=== PATIENT | male | born 1980 | race Caucasian/White ===

== ENCOUNTER 2016-10-16 00:04 | Emergency (ER) | payer SELFPAY ==
[~2016-10-16] VITALS: Ht 175.3 cm; Wt 75.6 kg
[~2016-10-16 00:04] MED LIST: BACT800T5 PO; MOTR200T PO; NAPR500 PO
[2016-10-16 00:09] VITALS: BP 144/86; PULSE 79; RESP 18; TEMP 98.4; O2SAT 97
[2016-10-16 00:30] VITALS: O2SAT 97
[2016-10-16] MEDS ORDERED: SODIUM CHLORIDE 0.9% FLUSH 10 ML FLUSH IVF PRN (00:30)
[2016-10-16] MEDS ORDERED: SODIUM CHLOR 0.9% 1000 ML INJ 1,000 ML IV SCH (00:30)
[2016-10-16] MEDS ORDERED: IBUP200C PO (00:57)
[2016-10-16 01:05] VITALS: BP 138/76; PULSE 58; RESP 18; O2SAT 97
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
[2016-10-16 03:11] LABS: BLOOD, URINE NEG (NEG); GLUCOSE,URINE NEG (NEG); KETONE, URINE NEG (NEG); NITRITE,URINE NEG (NEG)
[2016-10-16 03:15] LABS: RBC, URINE 0-2 /hpf (0-3); URINE COLOR YELLOW (YELLW/STRAW); WBC, URINE 0-2 /hpf (0-5)
[2016-10-16 03:16] LABS: COMMENT (UR) CULT NOT INDICATED; CULTURE IF INDICATED CULT NOT INDICATED; SQUAMOUS EPITHELIAL CELL URINE 0-5 /hpf (0-5)
[2016-10-16] MEDS ORDERED: IBUPROFEN 800 MG TAB PO ONE (03:30)
[2016-10-16] MEDS ORDERED: ROBA750T PO (03:34)
[2016-10-16] MEDS ORDERED: IBUP800T23 PO (03:34)
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
[2016-10-16 03:54] VITALS: BP 133/77; PULSE 70; RESP 18; O2SAT 97
--- NOTE | 2016-10-16 14:27 | EKG ---
Date Performed: 10/16/2016 Time Performed: 01:12:42 PTAGE: 36 years EKG: Sinus bradycardia. Normal ECG except for rate NO PREVIOUS TRACING DOCTOR: Cookie Ramos Interpretating Date/Time 10/16/2016 14:24:24
== END 2016-10-16 03:58 | disposition home or self-care (01) ==
LOC: PHED 00:04
DX: S16.1XXA Strain of muscle, fascia and tendon at neck level, initial encounter (principal); S09.90XA Unspecified injury of head, initial encounter; S70.02XA Contusion of left hip, initial encounter; R00.1 Bradycardia, unspecified; M50.30 Other cervical disc degeneration, unspecified cervical region; F17.200 Nicotine dependence, unspecified, uncomplicated; V28.4XXA Motorcycle driver injured in noncollision transport accident in traffic accident, initial encounter
CPT/HCPCS: 70450; 71010; 72125; 72170; 81001; 93005

== ENCOUNTER 2017-08-11 22:23 | Emergency (ER) | payer SELFPAY ==
[~2017-08-11 22:23] MED LIST changes: -BACT800T5 PO; +IBUP1TAB7 PO; +IBUP200C PO; -MOTR200T PO; -NAPR500 PO; +ROBA750T PO
[2017-08-11 23:14] VITALS: BP 131/93; PULSE 58; RESP 16; TEMP 98.7; O2SAT 98
--- NOTE | 2017-08-12 00:35 | PD ---
HPI Chief Complaint: Complaint Time Seen by Provider: 00:24 Travel History International Travel<30 days: No Contact w/Intl Traveler<30days: No Traveled to known affect area: No History of Present Illness HPI The patient is a 37-year-old male that complains of a bulge in his left groin for one month. He states he can lay back and pressed on it and it goes back in. He denies any nausea or vomiting. It is becoming progressively more painful when he pushes it back in. He states he does not have any insurance and did not try to call a surgeon because of this reason. 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 He denies any fever. PFSH Past Medical History ADHD: Yes Diminished Hearing: No Seizures: Yes Tetanus Vaccination: < 5 Years Influenza Vaccination: No ?: Not Social History Alcohol Use: Yes (Occasionally ) Tobacco Use: Yes (1 PPD) Substance Use: Yes (PO DILAUDID, Occasional Marijuana, Hx of cocaine and Xanax abuse,) Allergies-Medications (Allergen,Severity, Reaction): Coded Allergies: penicillin G (Unverified Allergy, Severe, Anaphylaxis, 08/12/17) *MDRO Multi-Drug Resistant Organism (Unverified Adverse Reaction, Unknown , 08/12/17) MRSA chest wound 10/12/14. Reported Meds & Prescriptions Reported Meds & Active Scripts Active Review of Systems Except as stated in HPI: all other systems reviewed are Neg Physical Exam Narrative GENERAL: The patient is alert, oriented 3 and minimal apparent distress with his left inguinal hernia discomfort. His vital signs are normal. SKIN: Focused skin assessment warm/dry. HEAD: Atraumatic. Normocephalic. EYES: Pupils equal and round. No scleral icterus. No injection or drainage. ENT: No nasal bleeding or discharge. Mucous membranes pink and moist. NECK: Trachea midline. No JVD. CARDIOVASCULAR: Regular rate and rhythm. No murmur appreciated. RESPIRATORY: No accessory muscle use. Clear to auscultation. Breath sounds equal bilaterally. GASTROINTESTINAL: Abdomen soft, non-tender, nondistended. Hepatic and splenic margins not palpable. When I see the patient the hernia is already reduced. There is tenderness around the hernia area. The patient can make it come out easily by tensing his stomach. There is no erythema around the groin. MUSCULOSKELETAL: No obvious deformities. No clubbing. No cyanosis. No edema. NEUROLOGICAL: Awake and alert. No obvious cranial nerve deficits. Motor grossly within normal limits. Normal speech. PSYCHIATRIC: Appropriate mood and affect; insight and judgment normal. Data Data Last Documented VS Vital Signs Date Time Temp Pulse Resp B/P (MAP) Pulse Ox O2 Delivery O2 Flow Rate FiO2 08/11/17 23:14 98.7 58 16 131/93 (106) 98 MDM Medical Decision Making Medical Screen Exam Complete: Yes Emergency Medical Condition: Yes Medical Record Reviewed: Yes Differential Diagnosis Reducible left inguinal hernia, strangulated left inguinal hernia, incarcerated left inguinal hernia Narrative Course The patient has a reducible left inguinal hernia. The patient is very symptomatic and painful, likely from irritation from the hernia contents moving back and forth through the hernia. He has never had any vomiting associated with this hernia. I discussed the patient with Dr. Gracia who graciously agreed to see the patient and his office later on this morning. The patient should call first to set up the appointment. The patient should avoid straining or other activities that make the hernia come out. Diagnosis Primary Impression: Reducible left inguinal hernia Additional Instructions: As we discussed, call Dr. Gracia's office later this morning to set up that appointment. Dr. Gracia,s office will likely work out a payment plan so that they can take care of your hernia. Avoid straining or anything that makes the hernia, come out. Med/Other Pt SpecificInfo: No Change to Meds Disposition: 01 DISCHARGE HOME Condition: Stable Best Gudino MD Aug 12, 2017 00:34
[2017-08-12 00:45] VITALS: BP 128/78; PULSE 72; RESP 16; O2SAT 96
== END 2017-08-12 00:46 | disposition home or self-care (01) ==
LOC: PHED 22:23
DX: K40.90 Unilateral inguinal hernia, without obstruction or gangrene, not specified as recurrent (principal); F17.210 Nicotine dependence, cigarettes, uncomplicated
CPT/HCPCS: 99281